=== PATIENT | female | born 1960 | race African-American/Black ===

== ENCOUNTER 2021-04-02 10:29 | Outpatient (CLI) | payer OTHER | END 2021-04-02 10:30 | disposition home or self-care (01) | LOC: CSHRAD 10:29 | PROVIDERS: ATTEND Psychiatry & Neurology Neurology | DX: J44.9 Chronic obstructive pulmonary disease, unspecified (principal); Z87.81 Personal history of (healed) traumatic fracture; M19.071 Primary osteoarthritis, right ankle and foot | CPT/HCPCS: 71046 ==

== ENCOUNTER 2022-04-01 05:42 | Day surgery (SDC) | payer BC ==
[2022-03-28 12:39] VITALS: BMI 32.9
[2022-04-01] MEDS ORDERED: PROPOFOL 40 ML ONE (07:27)
[2022-04-01] MEDS ORDERED: Lidocaine 1% PF 5 ML VIAL ONE (07:27)
[2022-04-01] MEDS ORDERED: Glycopyrrolate 0.2 MG/ML 5 ML SYRINGE ONE (08:07)
[2022-04-01] MEDS ORDERED: PROPOFOL 20 ML ONE ×3 (08:22→09:52)
== END 2022-04-01 09:44 | disposition home or self-care (01) ==
LOC: CSHSDC 05:42
PROVIDERS: ATTEND Internal Medicine Gastroenterology
PROC: 0DB68ZZ Excision of Stomach, Via Natural or Artificial Opening Endoscopic (ICD-10-PCS; principal; 2022-04-01)
PROC: 0DBL8ZZ Excision of Transverse Colon, Via Natural or Artificial Opening Endoscopic (ICD-10-PCS; principal; 2022-04-01)
DX: Z12.11 Encounter for screening for malignant neoplasm of colon (principal); D12.3 Benign neoplasm of transverse colon; K57.30 Diverticulosis of large intestine without perforation or abscess without bleeding; K58.9 Irritable bowel syndrome, unspecified; K64.9 Unspecified hemorrhoids; K31.7 Polyp of stomach and duodenum; K31.89 Other diseases of stomach and duodenum; K44.9 Diaphragmatic hernia without obstruction or gangrene; K21.9 Gastro-esophageal reflux disease without esophagitis; R13.10 Dysphagia, unspecified; K76.0 Fatty (change of) liver, not elsewhere classified; I10 Essential (primary) hypertension; E78.5 Hyperlipidemia, unspecified; E11.9 Type 2 diabetes mellitus without complications; K74.60 Unspecified cirrhosis of liver; E66.9 Obesity, unspecified; Z88.0 Allergy status to penicillin
CPT/HCPCS: 36416; 88305; J2704